=== PATIENT | male | born 1980 | race Caucasian/White ===

== ENCOUNTER 2017-11-24 13:00 | Outpatient (RCR) | payer OTHER | END 2017-12-03 | LOC: OT 13:00 | PROVIDERS: ATTEND Surgery Surgery of the Hand | DX: S62.615D Displaced fracture of proximal phalanx of left ring finger, subsequent encounter for fracture with routine healing (principal); M25.642 Stiffness of left hand, not elsewhere classified; R53.1 Weakness | CPT/HCPCS: 97022 ×2; 97110 ×3; 97165; L3913 ==

== ENCOUNTER 2017-12-30 08:00 | Outpatient (RCR) | payer OTHER | END 2018-01-02 | LOC: OT 08:00 | PROVIDERS: ATTEND Surgery Surgery of the Hand | DX: S62.615D Displaced fracture of proximal phalanx of left ring finger, subsequent encounter for fracture with routine healing (principal); M25.642 Stiffness of left hand, not elsewhere classified; R53.1 Weakness; Y93.68 Activity, volleyball (beach) (court) | CPT/HCPCS: 97139 ==

== ENCOUNTER 2018-01-17 16:00 | Outpatient (RCR) | payer OTHER | END 2018-02-02 | LOC: OT 16:00 | PROVIDERS: ATTEND Surgery Surgery of the Hand | DX: S62.615D Displaced fracture of proximal phalanx of left ring finger, subsequent encounter for fracture with routine healing (principal) | CPT/HCPCS: 97139 ==